=== PATIENT | male | born 2000 | race Hispanic/Latino ===

== ENCOUNTER 2024-08-29 10:15 | Emergency (ER) | payer SELFPAY ==
[~2024-08-29] VITALS: Ht 170.2 cm; Wt 88.5 kg
[2024-08-29 10:50] LABS: RAPID GROUP A STREP negative (NEGATIVE)
[2024-08-29 10:52] LABS: SARS-CoV-2, RNA, NAAT NEGATIVE SARS CoV-2 (NEGATIVE)
[2024-08-29 11:01] LABS: INFLUENZA TYPE B Negative For Type B (NEGATIVE)
[2024-08-29 11:11] LABS: INFLUENZA TYPE A Positive For Type A (NEGATIVE)
--- NOTE | 2024-08-29 11:28 | ERN ---
ED Note History of Present Illness Stated Complaint: SOB,CHEST PAINS, FEVER, COUGH Chief Complaint: Flu Symptoms Time Seen by MD: 10:25 Dictation: 24-year-old male presents to the ED for evaluation of cough onset one day ago. Patient reports fever, nasal congestion, chest wall pain when taking deep breaths and headache, but denies any other associated symptoms at this time. NKA. Allergies: Coded Allergies: No Known Drug Allergies (Verified Allergy, 08/09/12) Home Meds Active Scripts Oseltamivir Phosphate (Tamiflu) 75 Mg Cap, 75 MG PO BID for 5 Days, #10 CAP Prov:JORDON PALACIOS MD 08/29/24 Past Medical History Past Medical History: No Pertinent History Surgical History: None Review of System Dictation Constitutional: Positive for fever negative for chills, and weight loss Eyes: Negative for injury, pain,redness, and discharge ENT: Positive for nasal congestion Negative for injury,pain or swelling Cardiovascular: Positive for chest wall pain Negative for chest pain, palpitations, and edema Respiratory: Positive for cough Negative for shortness of breath and wheezing, Abdomen/GI: Negative for abdominal pain, nausea, vomiting, diarrhea, and constipation Back: Negative for injury and pain : Negative for injury, bleeding and discharge MS/Extremity: Negative for injury and deformity Skin: Negative for rash, and discoloration Neuro: Negative for headache, weakness, numbness, tingling, and seizure Psych: Negative for suicide ideation, homicidal ideation, and hallucinations Initial Vital Sign VS Vital Signs Date Time Temp Pulse Resp B/P (MAP) Pulse Ox O2 Delivery O2 Flow Rate FiO2 08/29/24 10:19 100.0 98 18 126/69 98 Room Air 08/29/24 12:13 0 21 Physical Exam Dictation General: awake, alert, NAD Head/Face: Normocephalic, atraumatic Eyes: PERRL, EOMI, vision at baseline ENT: oral cavity clear, TMs clear, nasal congestion Neck: Trachea midline, supple, no nuchal rigidity Cardiovascular: RRR, normal S1/S2, No MRGs, no JVD Respiratory: CTAB, no respiratory distress, No rales or wheezes Abdomen: Soft, non-tender, non-distended, normal bowel sounds, no guarding or rebound. Skin: Warm, dry, normal turgor, no rash MS/Extremity: Pulses equal, no cyanosis, neurovascular intact, FROM Neuro: COAx4, GCS 15, strength 5/5, CN 2-12 intact, normal cerebellar exam, normal gait, Psych: Normal behavior, mood, and affect normal Results (Laboratory/Radiology) Laboratory/Radiology Laboratory Tests Test 08/29/24 10:23 Influenza Type A Antigen Positive For Type A Influenza Type B Antigen Negative For Type B SARS-CoV-2, RNA, NAAT NEGATIVE SARS CoV-2 Group A Streptococcus Rapid negative (NEGATIVE) Labs Reviewed?: Yes ED Course ED Course Orders Procedure Category Date Status Time Influenza Type A & B, LAB 08/29/24 Complete Rapid 10:22 Rapid (Group A Strep) LAB 08/29/24 Complete 10:22 Covid Rna Naat LAB 08/29/24 Complete 10:22 Chest 1vw RAD 08/29/24 Taken 11:27 Dexamethasone 4mg/Ml PHA 08/29/24 Complete 1ml Vial (Dexametha 11:30 Current Medications Medications (Trade) Dose Ordered Sig/Norberto Route PRN Reason Start Time Stop Time Status Last Admin Dose Admin Dexamethasone Sodium Phosphate (dexaMETHasone 4MG/ML 1ML VIAL) 10 mg ONCE ONCE IM 08/29/24 11:30 08/29/24 11:31 DC Vital Signs Date Time Temp Pulse Resp B/P (MAP) Pulse Ox O2 Delivery O2 Flow Rate FiO2 08/29/24 12:13 100.0 98 18 125/66 98 Room Air* 0 21 08/29/24 10:19 100.0 98 18 126/69 98 Room Air Medical Decision Making MDM MDM: Differential diagnosis: Viral syndrome, URI, implants I Risk of complication and/or morbidity or mortality of patient management: None Medications-Per medication reconciliation Need for hospitalization: Patient does not meet criteria for hospitalization. Need for emergency major/minor surgery: No There are no social concerns with this patient. Prescription drug management Prescriptions will include symptomatic care I independently interpreted the test that were performed, results were reviewed by me and considered findings on radiology if ordered. Medical management and examination interpretation discussions were had by me with other qualified healthcare professionals as indicated for the patient's care. DX & DISP Disposition: Discharge Departure Impression: Primary Impression: Acute URI Additional Impression: Influenza A Condition: Stable Scripts Oseltamivir Phosphate (Tamiflu) 75 Mg Cap 75 MG PO BID for 5 Days, #10 CAP Prov: JORDON PALACIOS MD 08/29/24 Referrals: JACY VASQUEZ (PCP) JORDON PALACIOS MD Aug 29, 2024 11:28
[2024-08-29 12:13] VITALS: BP 125/66; PULSE 98; RESP 18; TEMP 100; O2SAT 98
[2024-08-29] MEDS ORDERED: OSEL75 PO (12:25)
[2024-08-29] MEDS: dexaMETHasone SOD PHOSPHATE 4 MG/ML 1ML VIAL IM ONE (12:34)
--- NOTE | 2024-08-29 13:18 | HMCIMG ---
INDICATION: cough TECHNIQUE: CHEST 1VW COMPARISON: 08/23/2015 FINDINGS/IMPRESSION: No acute consolidation or pleural effusion. Cardiac silhouette is within normal limits. Mild degenerative changes of the spine. The visualized upper abdomen appears unremarkable.
== END 2024-08-29 13:22 | disposition home or self-care (01) ==
LOC: EDH 10:15
DX: J06.9 Acute upper respiratory infection, unspecified (principal); Z20.822 Contact with and (suspected) exposure to COVID-19
CPT/HCPCS: 99284; 71045; 87635; 87880; 87804 ×2; 96372; J1100